=== PATIENT | male | born 1990 | race Caucasian/White ===

== ENCOUNTER 2024-07-14 19:26 | Emergency (ER) | payer MEDICAID, SELFPAY ==
[2024-07-14 19:35] VITALS: BP 126/83; PULSE 88; RESP 18; TEMP 36.6; O2SAT 100; BMI 26.6
--- NOTE | 2024-07-14 19:37 | ECG_ITS ---
APPROVED REPORT Exam: Resting ECG HR:98 bpm ECG Measurements Heart Rate 98 AXES NJ 140 P 79 QRSd 94 QRS 63 QT 341 T 44 QTc 396 Conclusion SINUS RHYTHM NORMAL ECG UNCONFIRMED REPORT Electronically signed by : NICHOLE COTTRELL, 07/17/2024 23:45:24
[2024-07-14 19:41] VITALS: BP 118/84
[2024-07-14 19:42] VITALS: PULSE 88
--- NOTE | 2024-07-14 19:48 | ED_ITS ---
<Statement entered by Radha Gan MD - 07/14/24 21:09> I was consulted by the [facility], and we discussed the complexity of problems being addressed. I approved the treatment and management plan for this patient's care in the emergency department, thus performing a substantive portion of the medical decision making. Radha Gan MD Discharge Plan Disposition Patient Disposition: Home, Self-Care Referrals Follow up/Referrals: Provider,Referral, MD [Primary Care Provider] - See instructions Activity Restrictions/Add. Instructions Additional Instructions/Restrictions: Today you were evaluated in the emergency department for chest pain. Your cardiac enzyme is negative. Your other lab work was unremarkable. Please follow-up with your PCP. Return to the ED for worsening of condition. Clinical Impressions Clinical Impression: Chest pain Qualifiers: Chest pain type: unspecified Qualified Code(s): R07.9 - Chest pain, unspecified Instructions Patient Instructions: DI for Atypical Chest Pain Print Language Print Language: Mohawk Discharge ED Provider: Radha Gan General Adult HPI General Chief complaint: Chest Pain Stated complaint: Medical Clearance Time Seen by Provider: 07/14/24 19:37 Mode of Arrival: Ambulatory Source of Information: Patient Description of Symptoms (Recalled from ER Triage Doc. by RN): Pt reports he began having CP due to stress once he was arrested. Pt reports his pain is 4/10 and sharp at this time. Pt denies any radiation at time of triage. History of Present Illness HPI narrative: patient is a 34-year-old male PMHx drug abuse who presents to the ED in police custody for med clearance. While patient is here, he states that he has been having chest pain over the past several days intermittently. Related Data Allergies Allergy/AdvReac Type Severity Reaction Status Date / Time No Known Allergies Allergy Verified 07/14/24 19:44 [facility] Disclaimer: The information contained in this section may have been updated after the patient was seen, as this information can be updated by other users. Social History Smoking Status: Current every day smoker alcohol intake: current current occupational status: unemployed Travel in the last 8 weeks?: None ROS Obtained: Yes Systems reviewed as appropriate & no additional complaints except as documented Physical Exam General General appearance: alert and in no apparent distress Head Head exam: atraumatic and normocephalic Eye Eye exam: Present normal appearance and PERRL ENT ENT exam: Present normal exam Neck Neck exam: Present normal inspection Chest Chest inspection: Present normal inspection and symmetric chest wall rise; Absent tenderness Respiratory Respiratory exam: Present normal lung sounds bilaterally Cardiovascular Cardiovascular exam: Present regular rate Abdominal Exam Abdominal exam: Present soft and normal bowel sounds; Absent tenderness Extremities Exam Extremities exam: Present normal inspection and full ROM Back Exam Back exam: Present normal inspection and full ROM Neurological Exam Neurological exam: Present alert and oriented X3 Psychiatric Psychiatric exam: Present normal affect and normal mood Skin Skin exam: Present warm and dry Medical Decision Making Medical Records Screening: Per USPSTF and CDC recommendations, given the prevalence of disease in our region, it is our hospital?s policy to screen for HIV and viral Hepatitis for all patients aged 18 and over and those with ongoing risk factors. Andre Inquiry Pt receiving controlled substance: No Vital Signs: 07/14/24 19:35 07/14/24 19:41 07/14/24 19:42 Temperature 97.9 F Temperature Source Oral Pulse Rate 88 Pulse Rate [Left] 88 Respiratory Rate 18 Blood Pressure 118/84 Blood Pressure [Right Arm] 126/83 Blood Pressure Mean 89 Blood Pressure Mean [Right Arm] 97 Blood Pressure Source [Right Arm] Automatic Cuff Blood Pressure Position [Right Arm] Supine 02 Sat by Pulse Oximetry 100 Oxygen Delivery Method Room Air Lab Data Lab Results 07/14/24 20:19: WBC 8.8, RBC 5.20, Hgb 15.5, Hct 45.0, MCV 86.5, MCH 29.8, MCHC 34.4, RDW 12.1, Plt Count 244, MPV 9.2, Neut % (Auto) 71.0, Lymph % (Auto) 20.6, Cottle % (Auto) 6.6, Eos % (Auto) 0.7, Baso % (Auto) 0.8, Neut # (Auto) 6.2, Lymph # (Auto) 1.8, Cottle # (Auto) 0.6, Eos # (Auto) 0.1, Baso # (Auto) 0.1, Sodium 137, Potassium 4.2, Chloride 107, Carbon Dioxide 25, Anion Gap 9.2, BUN 8 L, Creatinine 0.90, Estimated Creat Clear 134, Estimated GFR 97, Est GFR ( Amer) 117, Glucose 87, Calcium 9.6, Troponin I < 0.01 07/14/24 20:19 07/14/24 20:19 Orders (Tests/Meds): ORDERS Category Date Time Status BMP [Basic Metabolic Panel] Stat Lab 07/14/24 20:19 Completed CBC w/Auto Diff [Complete Blood Count Auto Diff] Stat Lab 07/14/24 20:19 Completed Trop I [Troponin I] Stat Lab 07/14/24 20:19 Completed Troponin I Q3H Lab 07/14/24 23:00 Ordered Troponin I Q3H Lab 07/15/24 02:00 Ordered UDS [Drug Screen,Urine] Stat Lab 07/14/24 19:48 Ordered Medical Decision Narrative: In summary, patient is a 34-year-old male PMHx drug abuse who presents to the ED in police custody for med clearance. While patient is here, he states that he has been having chest pain over the past several days intermittently. Patient states he has a history of chest pain, states usually when he uses ice. Patient injects IV drugs. He states that his last injection was today. He denies any other medical complaints at this time. Denies fever, chills, body aches, shortness of breath, abdominal pain, nausea, vomiting. Differential diagnosis include intoxication, ACS, infectious process, electrolyte abnormality, among others. Discussed with patient that we will proceed with EKG and labs. CBC unremarkable for any leukocytosis, stable H&H. CMP overall unremarkable for any actionable abnormalities. Troponin < 0.01. Discussed with patient that workup is overall unremarkable. Advised him to follow-up with PCP. Discussed return precautions to the ED. Patient was hemodynamically stable upon discharge in police custody Critical Care Critical Care Time Critical Care Time: No
[2024-07-14 20:31] LABS: Basophils # 0.1 K/mm3 (0-0.2); Basophils % 0.8 % (0.1-2.0); Eosinophils # 0.1 Kmm3 (0.0-0.4); Eosinophils % 0.7 % (0.1-12.0); Hemoglobin 15.5 g/dL (14.1-18.0); Immature Granulocytes # 0.03 10^3uL; Immature Granulocytes % 0.3 %; Lymphocytes # 1.8 K/mm3 (0.7-4.5); Lymphocytes % 20.6 % (10-50); Mean Corpuscular HGB Conc 34.4 g/dL (31.8-35.4); Mean Corpuscular Hemoglobin 29.8 pg (27.0-31.2); Mean Corpuscular Volume 86.5 fl (80-94); Mean Platelet Volume 9.2 fl (7.4-10.4); Monocytes # 0.6 K/mm3 (0.1-1.0); Monocytes % 6.6 % (1.7-9.3); Neutrophils # 6.2 K/mm3 (1.8-7.8); Nucleated Red Blood Cells # 0 10^3/uL; Nucleated Red Blood Cells % 0 %; Platelet Count 244 K/mm3 (142-424); Red Cell Distribution Width 12.1 % (11.5-17.5); Red Cell Distribution Width-SD 38.4 fL; White Blood Count 8.8 K/mm3 (4.8-10.8)
[2024-07-14 20:47] LABS: Chloride 107 mmol/L (98-107); Sodium 137 mmol/L (136-145)
[2024-07-14 20:48] LABS: Potassium 4.2 mmoL/L (3.5-5.1)
[2024-07-14 20:50] LABS: Blood Urea Nitrogen 8 mg/dl (9-20); Creatinine Clearance Estimated 134 mL/min (50-200); Estimated Glomerular Filt Rate 97 ml/min (>60); GFR (African American) 117 ML/MIN (>60)
[2024-07-14 20:51] LABS: Anion Gap 9.2 mEq/L (5-15); Calcium 9.6 mg/dl (8.4-10.2); Carbon Dioxide 25 mmol/L (22.0-30.0); Glucose 87 mg/dl (74-100)
[2024-07-14 21:03] LABS: Troponin I < 0.01 ng/ml (0.00-0.034)
[2024-07-14 21:06] VITALS: BP 128/72; PULSE 104; O2SAT 99
[2024-07-14 21:19] VITALS: BP 126/72; PULSE 74; RESP 16; TEMP 36.6; O2SAT 98
--- NOTE | 2024-07-14 21:21 | PC.NURSE ---
IV removed; Catheter tip intact; bleeding controlled
== END 2024-07-14 21:21 | disposition home or self-care (01) ==
PROVIDERS: Nurse Practitioner; Emergency Provider Student in an Organized Health Care Education/Training Program
DX: R07.89 Other chest pain (principal); F19.10 Other psychoactive substance abuse, uncomplicated; F17.290 Nicotine dependence, other tobacco product, uncomplicated
CPT/HCPCS: 80048; 84484; 85025; 93005; 99283